=== PATIENT | female | born 1970 | race Caucasian/White ===

== ENCOUNTER 2018-01-19 11:01 | Emergency (ER) | payer OTHER ==
[~2018-01-19] VITALS: Ht 172.7 cm; Wt 68.0 kg
[~2018-01-19 11:01] MED LIST: WELLBUTRIN100 MG PO
[2018-01-19] MEDS ORDERED: CIPRODEX 0.3%-7.5 ML OT (11:34)
== END 2018-01-19 11:35 | disposition home or self-care (01) ==
LOC: ED 11:01
DX: H72.91 Unspecified perforation of tympanic membrane, right ear (principal); R05 Cough; R21 Rash and other nonspecific skin eruption; Z88.0 Allergy status to penicillin; Z88.8 Allergy status to other drugs, medicaments and biological substances; Z90.710 Acquired absence of both cervix and uterus